=== PATIENT | female | born 1980 | race Caucasian/White ===

== ENCOUNTER 2023-03-24 09:58 | Day surgery (SDC) | payer BC ==
[~2023-03-24] VITALS: Ht 170.2 cm; Wt 82.8 kg
[~2023-03-24 09:58] MED LIST: CEPH500; Cipro500 MG PO; Flagyl500 MG PO; HYDACE5 PO; IBUP400 PO; OXYACE5T PO; PENVK500 PO; PROM25 PO; Percocet 5-3251 EACH PO; RXCLIN PO; RXOXYACE PO
[2023-03-24 12:25] VITALS: BP 110/74
== END 2023-03-24 12:15 | disposition home or self-care (01) ==
LOC: ORSCSDS 09:58
PROVIDERS: Internal Medicine Gastroenterology
PROC: 0DJD8ZZ Inspection of Lower Intestinal Tract, Via Natural or Artificial Opening Endoscopic (ICD-10-PCS; principal; 2023-03-24 11:15)
DX: Z12.11 Encounter for screening for malignant neoplasm of colon (principal); Z86.010 Personal history of colon polyps; Z87.19 Personal history of other diseases of the digestive system
CPT/HCPCS: J2704; J7120